=== PATIENT | male | born 1955 | race Two or more races ===

== ENCOUNTER 2019-06-05 10:49 | Inpatient (IN) | payer MEDICAID, OTHER ==
[~2019-06-05] VITALS: Ht 172.7 cm; Wt 69.0 kg
[2019-06-05 12:04] LABS: Basophils # (auto) 0.1 10 ^3/uL (0-0.2); Basophils % (auto) 0.8 % (0.0-2.0); Eosinophils # (auto) 0.3 10 ^3/uL (0-0.8); Eosinophils % (auto) 3.8 % (0.0-7.0); Hematocrit 41.1 % (41.0-53.0); Hemoglobin 14.1 g/dL (13.5-17.5); Lymphocytes # (auto) 1.5 10 ^3/uL (0.4-5.4); Lymphocytes % (auto) 18.3 % (10.0-50.0); Mean Corpuscular Hemoglobin 32.2 pg (28.0-32.0); Mean Corpuscular Hgb Conc. 34.2 g/dL (32.0-36.0); Monocytes # (auto) 0.6 10 ^3/uL (0-1.3); Monocytes % (auto) 7.2 % (0.0-12.0); Neutrophils # (auto) 5.9 10 ^3/uL (1.6-8.6); Neutrophils % (auto) 69.9 % (37.0-80.0); Platelet Count (auto) 239 10^3/uL (140-450); Red Blood Cells 4.37 10^6/uL (4.5-5.90); Red Cell Distribution Width 14.4 % (11.8-14.3); White Blood Cell 8.4 10^3/uL (4.4-10.8)
[2019-06-05 12:28] LABS: Alanine Aminotransferase 22 U/L (16-61); Albumin 3.6 g/dL (3.4-5.0); Anion Gap 7 (5-15); Blood Urea Nitrogen 17 mg/dL (7-18); Calcium 8.7 mg/dL (8.5-10.1); Carbon Dioxide 23 mmol/L (21-32); Chloride 106 mmol/L (98-107); Glucose 95 mg/dL (74-106); Potassium 4.1 mmol/L (3.5-5.1); Sodium 136 mmol/L (136-145)
[2019-06-05] MEDS ORDERED: ACETAMINOPHEN 325 MG TAB PO ONE (12:30)
[2019-06-05] MEDS ORDERED: TETANUS-DIPTH-ACEL PERTUSSIS 0.5ML SYR Tdap IM ONE (12:30)
[2019-06-05 12:33] LABS: Alkaline Phosphatase 58 U/L (45-117); Aspartate Aminotransferase 21 U/L (15-37); Bilirubin, Total 0.5 mg/dL (0.2-1.0); GFR African American 117 mL/min; GFR Non-African American 97 mL/min; Total Protein 7.6 g/dL (6.4-8.2)
[2019-06-05 14:02] LABS: Urine Bacteria NONE SEEN /hpf (None Seen); Urine Blood Negative /uL (Negative); Urine Hyaline Cast FEW /lpf (0 - 2); Urine Specific Gravity 1.007 (1.001-1.035); Urine WBC None Seen /hpf (0 - 3)
[2019-06-05] MEDS ORDERED: ACETAMINOPHEN/CODEINE#3 (300/30mg) TAB PO PRN (14:15)
[2019-06-05] MEDS ORDERED: NITROGLYCERIN 0.4 MG SL TAB SL PRN (14:15)
[2019-06-05] MEDS ORDERED: ONDANSETRON HCL 4 MG/2 ML VIAL IV PRN (14:15)
[2019-06-05] MEDS ORDERED: MORPHINE SULF INJ 2 MG/ML SYRINGE 1ML IV PRN (14:15)
--- NOTE | 2019-06-05 15:13 | NUR ---
SBAR REPORT RECEIVED FROM HAVEN KELLY
--- NOTE | 2019-06-05 15:30 | NUR ---
Telemetry admit from ER SANDRA BOYLE admitted to Telemetry unit after SBAR received. Patient oriented to JUDY NEELY,primary RN, unit, room, bed, and unit policies regarding patient care and visiting hours. Patient now on continuous telemetry monitoring, tele box #32 and telemetry reading on arrival to unit is Sinus Rhythm 62bpm. Patient on room air, weighed by bedscale and encouraged to call if they need something. All questions and concerns addressed, patient verbalized understanding.
--- NOTE | 2019-06-05 16:00 | NUR ---
ULTRASOUND AT BEDSIDE FOR CAROTID ULTRASOUND ORDER
[2019-06-05] MEDS ORDERED: LIDO2SOL18 TD (16:02)
[2019-06-05] MEDS ORDERED: CLOP75TA41 PO (16:02)
[2019-06-05] MEDS ORDERED: AMLO5TAB15 PO (16:02)
[2019-06-05] MEDS ORDERED: ATOR40TA52 PO (16:02)
[2019-06-05] MEDS ORDERED: LISI-646 PO (16:02)
[2019-06-05] MEDS ORDERED: ISO60SRT PO (16:02)
[2019-06-05] MEDS ORDERED: LEVO500I7 IV (16:02)
[2019-06-05] MEDS ORDERED: ASPI-404 PO (16:02)
[2019-06-05 17:00] VITALS: BP 123/63
--- NOTE | 2019-06-05 19:30 | NUR ---
Opening Shift Note Assumed care of patient, awake and alert. No S/S of distress/SOB or pain. Instructed on POC and to call for assist PRN, patient verbalized understanding. Safety measures in place, call light within reach, will continue to monitor for changes Q1hr and PRN.
[2019-06-05 20:00] VITALS: BP 101/52
[2019-06-05 21:30] VITALS: BP 101/52
[2019-06-05] MEDS: LIDOCAINE 5% TOPICAL PATCH TOP SCH (21:45)
--- NOTE | 2019-06-05 22:15 | NUR ---
Dr. Villatoro at bedside
[2019-06-05] MEDS ORDERED: LORazepam 2MG/ML-1ML VIAL IV PRN (22:30)
[2019-06-06 05:21] VITALS: BP 120/70
[2019-06-06 05:43] LABS: Basophils # (auto) 0 10 ^3/uL (0-0.2); Basophils % (auto) 0.6 % (0.0-2.0); Eosinophils # (auto) 0.2 10 ^3/uL (0-0.8); Hematocrit 41.2 % (41.0-53.0); Hemoglobin 13.9 g/dL (13.5-17.5); Lymphocytes # (auto) 1.9 10 ^3/uL (0.4-5.4); Lymphocytes % (auto) 23.2 % (10.0-50.0); Mean Corpuscular Hemoglobin 32.1 pg (28.0-32.0); Mean Corpuscular Hgb Conc. 33.8 g/dL (32.0-36.0); Mean Corpuscular Volume 94.9 fL (80.0-100.0); Monocytes # (auto) 0.7 10 ^3/uL (0-1.3); Monocytes % (auto) 7.9 % (0.0-12.0); Neutrophils # (auto) 5.4 10 ^3/uL (1.6-8.6); Neutrophils % (auto) 65.3 % (37.0-80.0); Nucleated Red Blood Cells % 0.1 %; Platelet Count (auto) 219 10^3/uL (140-450); Red Blood Cells 4.35 10^6/uL (4.5-5.90); Red Cell Distribution Width 14.2 % (11.8-14.3); White Blood Cell 8.2 10^3/uL (4.4-10.8)
[2019-06-06 05:59] LABS: Potassium 4.1 mmol/L (3.5-5.1)
[2019-06-06 06:03] LABS: BUN/Creatinine Ratio 21.9; Calcium 8.7 mg/dL (8.5-10.1)
[2019-06-06 07:39] LABS: Alcohol, Urine < 3.0 mg/dL (0-5); Amphetamine Screen, Urine NEGATIVE (NEGATIVE); Barbiturate Scree,Urine NEGATIVE (NEGATIVE); Benzodiazephine Screen, Urine NEGATIVE (NEGATIVE); Cannabinoid Screen, Urine NEGATIVE (NEGATIVE); Cocaine Screen, Urine NEGATIVE (NEGATIVE); Opiate Scree,Urine NEGATIVE (NEGATIVE); Phencyclidine Screen, Urine NEGATIVE (NEGATIVE)
--- NOTE | 2019-06-06 08:37 | NUR ---
Opening Shift Note Assumed care of patient, awake and alert. No S/S of distress/SOB or pain. Instructed on POC and to call for assist PRN, will continue to monitor for changes Q1hr and PRN.
[2019-06-06 08:59] VITALS: BP 128/56
[2019-06-06] MEDS: CLOPIDOGREL BISULFATE 75 MG TAB PO SCH (09:18)
[2019-06-06] MEDS: ASPirin-EC 81 mg tab PO SCH (09:18)
[2019-06-06] MEDS ORDERED: amLODIPine BESYLATE 5 MG TAB PO SCH (10:00)
[2019-06-06] MEDS ORDERED: LISINOPRIL 10 MG TAB PO SCH (10:00)
[2019-06-06] MEDS: SODIUM CHLORIDE 0.9% 1,000 ML IV SCH (12:13)
[2019-06-06 13:00] VITALS: BP 123/71
--- NOTE | 2019-06-06 16:11 | NUR ---
EEG- electroencephalogram completed on 06/06/2019.
[2019-06-06 16:56] VITALS: BP 125/69
[2019-06-06] MEDS ORDERED: LISI-646 PO (17:39)
[2019-06-06] MEDS ORDERED: ATO40T PO (17:39)
[2019-06-06] MEDS ORDERED: AMLO5TAB15 PO (17:39)
[2019-06-06] MEDS ORDERED: LEVO50TA7 PO (17:39)
[2019-06-06] MEDS ORDERED: NITR0.4S29 SL (17:39)
[2019-06-06] MEDS ORDERED: ISOS60TA24 PO (17:39)
[2019-06-06] MEDS ORDERED: POM (17:39)
[2019-06-06] MEDS ORDERED: CLOP75TA41 PO (17:39)
[2019-06-06] MEDS ORDERED: ASPI-404 PO (17:39)
[2019-06-06] MEDS: LIDOCAINE 5% TOPICAL PATCH TOP SCH (21:37)
[2019-06-06 22:00] VITALS: BP 111/63
[2019-06-06] MEDS ORDERED: ATORVASTATIN 20 MG TAB PO SCH (22:00)
[2019-06-07] MEDS: SODIUM CHLORIDE 0.9% 1,000 ML IV SCH ×2 (01:05→13:25)
[2019-06-07 05:50] VITALS: BP 119/74
[2019-06-07] MEDS ORDERED: LEVOTHYROXINE SODIUM 50 MCG TAB PO SCH (07:00)
--- NOTE | 2019-06-07 07:25 | NUR ---
Opening Shift Note Assumed care of patient, awake, oriented x 4. No S/S of distress/SOB or pain. Plan of care discussed, advised to call for assist PRN. Safety measures in place, bed alarm on, call light within reach, will continue to monitor for changes Q1hr and PRN.
[2019-06-07 08:00] VITALS: BP 127/67
[2019-06-07] MEDS: CLOPIDOGREL BISULFATE 75 MG TAB PO SCH (09:46)
[2019-06-07] MEDS: ASPirin-EC 81 mg tab PO SCH (09:46)
[2019-06-07 12:52] VITALS: BP 128/56
--- NOTE | 2019-06-07 13:44 | NUR ---
PATIENT DISCHARGED HOME WITH COPIES OF DISCHARGE SUMMARY AND FOLLOW UP INSTRUCTIONS. PATIENT IS ALERT AND ORIENTED X4, AMBULATORY AND NO S/S ACUTE DISTRESS AT THIS TIME. PATIENT VERBALIZED UNDERSTANDING OF DISCHARGE INSTRUCTIONS GIVEN. IV REMOVED WITH CANNULA INTACT, TELE BOX 32 SENT TO ICU.
== END 2019-06-07 13:44 | disposition home or self-care (01) | DRG 204 ==
LOC: ER 10:49 → EDBD 10:49 → TELE 10:50 → TELE-CENTR 16:19
PROVIDERS: ADMIT Nurse Practitioner Acute Care; ATTEND Internal Medicine
DX: R55 Syncope and collapse (principal); G93.89 Other specified disorders of brain; I67.2 Cerebral atherosclerosis; I69.354 Hemiplegia and hemiparesis following cerebral infarction affecting left non-dominant side; M48.02 Spinal stenosis, cervical region; R00.1 Bradycardia, unspecified; S00.03XA Contusion of scalp, initial encounter; G44.319 Acute post-traumatic headache, not intractable; I10 Essential (primary) hypertension; M54.9 Dorsalgia, unspecified; W18.39XA Other fall on same level, initial encounter; H53.2 Diplopia; G89.29 Other chronic pain; E03.9 Hypothyroidism, unspecified; E78.5 Hyperlipidemia, unspecified; F17.210 Nicotine dependence, cigarettes, uncomplicated; M47.812 Spondylosis without myelopathy or radiculopathy, cervical region; M77.9 Enthesopathy, unspecified; I25.10 Atherosclerotic heart disease of native coronary artery without angina pectoris; Z72.820 Sleep deprivation; Z79.02 Long term (current) use of antithrombotics/antiplatelets; Z79.82 Long term (current) use of aspirin; Z80.0 Family history of malignant neoplasm of digestive organs; Z82.3 Family history of stroke; Z82.49 Family history of ischemic heart disease and other diseases of the circulatory system; Z83.3 Family history of diabetes mellitus; Z79.899 Other long term (current) drug therapy; Y93.89 Activity, other specified; Y92.098 Other place in other non-institutional residence as the place of occurrence of the external cause; Y99.8 Other external cause status; Z90.49 Acquired absence of other specified parts of digestive tract; Z80.9 Family history of malignant neoplasm, unspecified; Z23 Encounter for immunization
CPT/HCPCS: 36415; 70450; 70551; 71045; 72125; 80048; 80053; 80307; 81001; 83735; 84443; 84484; 85025; 90471; 90715; 93005; 93886; 95819; 97163; G0378